=== PATIENT | male | born 1990 | race African-American/Black ===

== ENCOUNTER 2018-04-11 03:23 | Emergency (ER) | payer SELFPAY ==
--- NOTE | 2018-04-11 04:51 | ER Document Report ---
ED General - General TRAVEL OUTSIDE OF THE [place] IN LAST 30 DAYS: No <CHEL SPEARS - Last Filed: 04/11/18 06:48> <LYNETTE QUIROGA - Last Filed: 04/11/18 16:03> - General Chief Complaint: ETOH Abuse Stated Complaint: BEHAVIORAL ISSUES Time Seen by Provider: 04/11/18 03:48 Notes: 22-year-old male with a past medical history of psychosis after alcohol ingestion presents to the emergency department for drinking alcohol tonight and requiring a psychiatric evaluation. Unable to obtain a history from him because he is speaking word salad and is perseverating speech. (CHEL SPEARS) - Related Data Allergies/Adverse Reactions: No Known Allergies Allergy (Verified 02/09/16 12:35) Past Medical History - General Cannot obtain history due to: Altered mental status - Social History Smoking Status: Never Smoker Chew tobacco use (# tins/day): No Frequency of alcohol use: Heavy Family History: Reviewed & Not Pertinent Patient has suicidal ideation: No Patient has homicidal ideation: No Renal/ Medical History: Denies: Hx Peritoneal Dialysis Psychiatric Medical History: Reports: Hx Attention Deficit Hyperactivity Dis order - Immunizations Hx Diphtheria, Pertussis, Tetanus Vaccination: Yes <CHEL SPEARS - Last Filed: 04/11/18 06:48> Review of Systems - Review of Systems -: Yes ROS unobtainable due to patient's medical condition <CHEL SPEARS - Last Filed: 04/11/18 06:48> Physical Exam <CHEL SPEARS - Last Filed: 04/11/18 06:48> - Vital signs Vitals: Temp Pulse Resp BP Pulse Ox 98.6 F 119 H 20 119/76 98 04/11/18 03:35 04/11/18 03:35 04/11/18 03:35 04/11/18 03:35 04/11/18 03:35 - Notes Notes: Reviewed vital signs and nursing note as charted by RN. CONSTITUTIONAL: Well-appearing, well-nourished, acting inappropriately for age HEAD: Normocephalic, atraumatic, no swelling EYES: PERRL, Conjunctivae clear, no drainage, EOMI, no scleral icterus ENT: External ears without lesions, External auditory canal is patent, airway patent, mucous membranes pink and moist NECK: Supple, no masses CARD: Regular rate and rhythm, no murmurs, no rubs, no gallops, capillary refill < 2 seconds, symmetric pulses RESP: The lungs are clear to auscultation bilaterally, no wheezing, no rales, no rhonchi. Respiratory rate and effort are normal, normal chest excursion. No respiratory distress, no retractions, no stridor, no nasal flaring, no accessory muscle use. ABD/GI: Normal bowel sounds, non-distended, soft, non-tender, no rebound, no guarding, no palpable organomegaly EXT: Normal ROM in all joints, non-tender to palpation, no effusions, no edema SKIN: Normal color for age and race, warm, dry, good turgor, no acute lesions noted NEURO: No facial asymmetry, moves all extremities equally, motor and sensory function intact PSYCH: Patient is speaking word salad. Patient states that there are people in his house were trying to murder him. Denies visual hallucinations. Denies auditory hallucinations. (CHEL SPEARS) Course - Laboratory Result Diagrams: 04/11/18 03:55 04/11/18 03:55 <CHEL SPEARS - Last Filed: 04/11/18 06:48> - Laboratory Result Diagrams: 04/11/18 03:55 04/11/18 03:55 <LYNETTE QUIROGA - Last Filed: 04/11/18 16:03> - Re-evaluation Re-evalutation: 04/11/18 04:52 22-year-old male who is been seen here before for acute psychosis after EtOH ingestion. He presents to the emergency department for the same symptoms after consuming alcohol. Is laying in the bed comfortably, calm talking to himself and speaking word salad. IVC protocol initiated. Patient is currently sinus tachycardic. Will recheck vital signs. 04/11/18 06:20 Reevaluated patient. He is lying comfortably in the bed sleeping. When I woke him he started mumbling again and was incoherent. Patient follows instructions. No signs of trauma or head injury. Patient remained calm and pulse check showed 102 bpm. IVC protocol lab work pending. Clinical picture most consistent with acute psychosis secondary to psychiatric illness and alcohol intoxication. Expectation is for patient to be medically cleared and evaluated by mental he alth team. 04/11/18 06:48 04/11/18 07:20 EKG completed. No acute changes. Patient is medically cleared to be evaluated by mental health team. (CHEL SPEARS) - Vital Signs Vital signs: Temp Pulse Resp BP Pulse Ox 98.0 F 76 18 120/70 100 04/11/18 08:58 04/11/18 08:58 04/11/18 08:58 04/11/18 08:58 04/11/18 08:58 04/11/18 06:20 Pulse: 102 (CHEL SPEARS) - Laboratory Laboratory results interpreted by me: 04/11/18 04/11/18 03:55 03:55 Hgb 13.4 L RDW 15.1 H Glucose 111 H ALT 18 L Salicylates < 1.0 L Acetaminophen < 10 L Discharge <CHEL SPEARS - Last Filed: 04/11/18 06:48> <LYNETTE QUIROGA - Last Filed: 04/11/18 16:03> - Discharge Clinical Impression: Acute psychosis, ETOH abuse Condition: Stable Additional Instructions: ED General - General TRAVEL OUTSIDE OF THE [place] IN LAST 30 DAYS: No <CHEL SPEARS - Last Filed: 04/11/18 06:48> <LYNETTE QUIROGA - Last Filed: 04/11/18 15:52> - General Chief Complaint: ETOH Abuse Stated Complaint: BEHAVIORAL ISSUES Time Seen by Provider: 04/11/18 03:48 Notes: 22-year-old male with a past medical history of psychosis after alcohol ingestion presents to the emergency department for drinking alcohol tonight and requiring a psychiatric evaluation. Unable to obtain a history from him because he is speaking word salad and is perseverating speech. (CHEL SPEARS) - Related Data Allergies/Adverse Reactions: No Known Allergies Allergy (Verified 02/09/16 12:35) Past Medical History - General Cannot obtain history due to: Altered mental status - Social History Smoking Status: Never Smoker Chew tobacco use (# tins/day): No Frequency of alcohol use: Heavy Family History: Reviewed & Not Pertinent Patient has suicidal ideation: No Patient has homicidal ideation: No Renal/ Medical History: Denies: Hx Peritoneal Dialysis Psychiatric Medical History: Reports: Hx Attention Deficit Hyperactivity Disorder - Immunizations Hx Diphtheria, Pertussis, Tetanus Vaccination: Yes <REGANCHEL - Last Filed: 04/11/18 06:48> Review of Systems - Review of Systems -: Yes ROS unobtainable due to patient's medical condition <REGANCHEL - Last Filed: 04/11/18 06:48> Physical Exam <REGANCHEL - Last Filed: 04/11/18 06:48> - Vital signs Vitals: Temp Pulse Resp BP Pulse Ox 98.6 F 119 H 20 119/76 98 04/11/18 03:35 04/11/18 03:35 04/11/18 03:35 04/11/18 03:35 04/11/18 03:35 - Notes Notes: Reviewed vital signs and nursing note as charted by RN. CONSTITUTIONAL: Well-appearing, well-nourished, acting inappropriately for age HEAD: Normocephalic, atraumatic, no swelling EYES: PERRL, Conjunctivae clear, no drainage, EOMI, no scleral icterus ENT: External ears without lesions, External auditory canal is patent, airway p atent, mucous membranes pink and moist NECK: Supple, no masses CARD: Regular rate and rhythm, no murmurs, no rubs, no gallops, capillary refill < 2 seconds, symmetric pulses RESP: The lungs are clear to auscultation bilaterally, no wheezing, no rales, no rhonchi. Respiratory rate and effort are normal, normal chest excursion. No respiratory distress, no retractions, no stridor, no nasal flaring, no accessory muscle use. ABD/GI: Normal bowel sounds, non-distended, soft, non-tender, no rebound, no guarding, no palpable organomegaly EXT: Normal ROM in all joints, non-tender to palpation, no effusions, no edema SKIN: Normal color for age and race, warm, dry, good turgor, no acute lesions n oted NEURO: No facial asymmetry, moves all extremities equally, motor and sensory function intact PSYCH: Patient is speaking word salad. Patient states that there are people in his house were trying to murder him. Denies visual hallucinations. Denies auditory hallucinations. (CHEL SPEARS) Course - Laboratory Result Diagrams: 04/11/18 03:55 04/11/18 03:55 <CHEL SPEARS - Last Filed: 04/11/18 06:48> - Laboratory Result Diagrams: 04/11/18 03:55 04/11/18 03:55 <LYNETTE QUIROGA - Last Filed: 04/11/18 15:52> - Re-evaluation Re-evalutation: 04/11/18 04:52 22-year-old male who is been seen here before for acute psychosis after EtOH ingestion. He presents to the emergency department for the same symptoms after consuming alcohol. Is laying in the bed comfortably, calm talking to himself and speaking word salad. IVC protocol initiated. Patient is currently sinus tachycardic. Will recheck vital signs. 04/11/18 06:20 Reevaluated patient. He is lying comfortably in the bed sleeping. When I woke him he started mumbling again and was incoherent. Patient follows instructions. No signs of trauma or head injury. Patient remained calm and pulse check showed 102 bpm. IVC protocol lab work pending. Clinical picture most consistent with acute psychosis secondary to psychiatric illness and alcohol intoxication. Expectation is for patient to be medically cleared and evaluated by mental health team. 04/11/18 06:48 04/11/18 07:20 EKG completed. No acute changes. Patient is medically cleared to be evaluated by mental health team. (CHEL SPEARS) - Vital Signs Vital signs: Temp Pulse Resp BP Pulse Ox 98.0 F 76 18 120/70 100 04/11/18 08:58 04/11/18 08:58 04/11/18 08:58 04/11/18 08:58 04/11/18 08:58 04/11/18 06:20 Pulse: 102 (CHEL SPEARS) - Laboratory Laboratory results interpreted by me: 04/11/18 04/11/18 03:55 03:55 Hgb 13.4 L RDW 15.1 H Glucose 111 H ALT 18 L Salicylates < 1.0 L Acetaminophen < 10 L Discharge <CHEL SPEARS - Last Filed: 04/11/18 06:48> <LYNETTE QUIROGA - Last Filed: 04/11/18 15:52> - Discharge Clinical Impression: Acute psychosis Disposition: HOME, SELF-CARE You have been evaluated by both behavioral health and medical at [facility] ED after presenting with alcohol abuse with psychosis and are now deemed appropriate for discharge. While in the ED you received and initial medical screening, lab work, EKG, direct staff observation, clinical evaluation, physician assessments and outpatient resources for follow up. Medical record review revealed you have a history of presenting to the ED with psychosis after abusing alcohol. You are encouraged to develop coping skills to substitute follow up with your outpatient resources provided to you.Acute Alcohol Intoxication Your evaluation revealed very high levels of alcohol. You can from drinking a large amount of alcohol rapidly! Further, there's the risk of falls, traffic accidents, and fights. A high portion (about 50 percent) of the serious injuries seen in hospital emergency rooms are caused by alcohol. Alcohol overdosage is usually due to an underlying emotional or psychiatric problem. You may benefit from counselling. If "binge" drinking is an ongoing problem for you, or if you drink ANY AMOUNT of alcohol EVERY day, you most likely have a tendency to alcoholism. You should avoid alcohol totally. We can refer you for treatment. Persons with alcohol problems are often also prone to other addictions -- you should discuss any use of medications or drugs with the doctor. You should be watched at home for the next several hours by someone who has not been drinking. Get extra fluids for the next 24 hours. Call the doctor if there is repeated vomiting, increasing headache, decreasing level of alertness, or any other worsening. Schizophrenia Schizophrenia is a chemical disorder that affects how the brain functions. The exact cause is unknown, but it tends to run in families. It is NOT caused by emotional trauma. Schizophrenia causes disordered thinking, including unusual beliefs and inability to "process" happenings around the patient. Patients with schizophrenia benefit greatly from medicine. These medicines are called antipsychotics. Never stop the medicine without the doctor's approval. Counselling may help the patient deal with his disease. Schizophrenics require a very ordered environment. Stresses and sudden changes may bring out symptoms. Drugs and alcohol abuse may become problems. Contact the counsellor or crisis line if there are thoughts of suicide or of harming others, or if you become aware of unusual thoughts or beliefs
[2018-04-11 04:56] LABS: ABSOLUTE MONOCYTES (AUTO) 0.6 10^3/uL (0.1-1.4); ABSOLUTE NEUT (AUTO) 3.4 10^3/uL (1.7-8.2); BASOPHILS % (AUTO) 0.4 % (0-2); EOSINOPHILS % (AUTO) 0.2 % (0-6); HEMATOCRIT 39.9 % (37.9-51.0); HEMOGLOBIN 13.4 g/dL (13.5-17.0); LYMPHOCYTES % (AUTO) 32.9 % (13-45); MEAN CORPUSCULAR HEMOGLOBIN 28.7 pg (27.0-33.4); MEAN CORPUSCULAR HGB CONC 33.6 g/dL (32.0-36.0); MEAN CORPUSCULAR VOLUME 86 fl (80-97); MONOCYTES % (AUTO) 9.5 % (3-13); PLATELET COUNT 280 10^3/uL (150-450); RED BLOOD COUNT 4.66 10^6/uL (4.35-5.55); RED CELL DISTRIBUTION WIDTH 15.1 % (11.5-14.0); TOTAL CELLS COUNTED % (AUTO) 100 %
[2018-04-11 05:04] LABS: ACETAMINOPHEN < 10 ug/mL (10-30); ALANINE AMINOTRANSFERASE 18 U/L (21-72); ALBUMIN 4.6 g/dL (3.5-5.0); ALCOHOL 224 mg/dL (NONE DETECTED); ALKALINE PHOSPHATASE 59 U/L (38-126); ANION GAP 15 (5-19); ASPARTATE AMINO TRANSFERASE 32 U/L (17-59); BILIRUBIN,DIRECT 0.3 mg/dL (0.0-0.4); BLOOD UREA NITROGEN 8 mg/dL (7-20); CALCIUM 9.6 mg/dL (8.4-10.2); CARBON DIOXIDE 26 mmol/L (22-30); CHLORIDE 103 mmol/L (98-107); GLUCOSE 111 mg/dL (75-110); SALICYLATE < 1.0 mg/dL (2.0-20.0); SODIUM 143.7 mmol/L (137-145); TOTAL PROTEIN 7.8 g/dL (6.3-8.2)
[2018-04-11 06:22] LABS: APPEARANCE,URINE CLEAR; BILIRUBIN,URINE NEGATIVE (NEGATIVE); COLOR,URINE STRAW; GLUCOSE, URINE NEGATIVE (NEGATIVE); KETONES,URINE NEGATIVE (NEGATIVE); LEUKOCYTE ESTERASE,URINE NEGATIVE (NEGATIVE); NITRITE,URINE NEGATIVE (NEGATIVE); PROTEIN,URINE NEGATIVE (NEGATIVE); URINE SPECIFIC GRAVITY 1.002; UROBILINOGEN,URINE NEGATIVE mg/dL (<2.0)
[2018-04-11 06:39] LABS: URINE AMPHETAMINES SCREEN NEGATIVE; URINE BARBITURATES SCREEN NEGATIVE; URINE BENZODIAZEPINES SCREEN NEGATIVE; URINE COCAINE SCREEN NEGATIVE; URINE MARIJUANA (THC) SCREEN NEGATIVE; URINE METHADONE SCREEN NEGATIVE; URINE PHENCYCLIDINE SCREEN NEGATIVE
--- NOTE | 2018-04-11 09:08 | RADIOLOGY REPORT (SQ) ---
EXAM DESCRIPTION: CT HEAD WITHOUT COMPLETED DATE/TIME: 04/11/2018 8:57 am REASON FOR STUDY: BEHAVIORAL CHANGES, AMS COMPARISON: None. TECHNIQUE: Axial images acquired through the brain without intravenous contrast. Images reviewed wi th bone, brain and subdural windows. Additional sagittal and coronal reconstructions were generated. Images stored on PACS. All CT scanners at this facility use dose modulation, iterative reconstruction, and/or weight based d osing when appropriate to reduce radiation dose to as low as reasonably achievable (ALARA). [facility]: Dose Right [facility]: CareDose [facility]: Dose Right [facility]: Teradose 4D [facility]: Immunologix RADIATION DOSE: 1249 mGy cm LIMITATIONS: None. FINDINGS: VENTRICLES: Normal size and contour. CEREBRUM: No masses. No hemorrhage. No midline shift. No evidence for acute infarction. Normal gra y/white matter differentiation. No areas of low density in the white matter. CEREBELLUM: No masses. No hemorrhage. No alteration of density. No evidence for acute infarction. EXTRAAXIAL SPACES: No fluid collections. No masses. ORBITS AND GLOBE: No intra- or extraconal masses. Normal contour of globe without masses. CALVARIUM: No fracture. PARANASAL SINUSES: No fluid or mucosal thickening. SOFT TISSUES: No mass or hematoma. OTHER: No other significant finding. IMPRESSION: NO ACUTE INTRACRANIAL IMAGING FINDINGS. EVIDENCE OF ACUTE STROKE: NO. COMMENT: Quality ID # [id number]: Final reports with documentation of one or more dose reduction techniques (e.g., Automated exposure control, adjustment of the mA and/or kV according to patient size, use of iterative reconstruction technique) TECHNICAL DOCUMENTATION: JOB ID: [id number] [employer]- All Rights Reserved Reading location - IP/workstation name: [email or web address]
--- NOTE | 2018-04-11 10:41 | ER Document Report ---
Doctor's Note Notes: 04/11/18 10:40 Patient seen and evaluated by myself. Patient is a 27-year-old male presents the emergency department with intoxication and psychosis. Patient is well-known to the staff. Patient's alcohol was at 224. No issues overnight per nursing. In the room the patient states that he feels much better. He has no complaints. Repeat alcohol ordered. Behavioral health consulted. Awaiting their recommendations. 04/11/18 16:15 Behavioral health evaluated the patient. They feel that the patient can be discharged home. He denies any suicidal or homicidal ideations.
--- NOTE | 2018-04-11 14:18 | EKG REPORT ---
SEVERITY:- NORMAL ECG - SINUS RHYTHM : Confirmed by: Ivana Gomez MD 11-Apr-2018 14:18:00
[2018-04-11 16:26] VITALS: BP 132/74
--- NOTE | 2018-04-17 05:48 | PSYCHOLOGICAL NOTE ---
Psych Note - Psych Note Date seen by psych provider: 04/11/18 Time seen by psych provider: 09:00 Psych Note: Reason for Consult: AV/H, ETOH abuse Contact Permissions: Adali Yi [phone] Patient is a 27 yo male presenting to the ED with HI and in apparent psychosis aeb unable to speak coherently (word salad) due to disorganized thought process. Chart review shows a hx of this patient experiencing psychosis with ETOH abuse. ETOH upon arrival was 224. Patient is initially awake but not speaking. After a few minutes though, he decides to speak and reports that he wants to go home. Patient admits drinking with friends last night, reports little memory of events leading up to his ED visit, denies being in treatment with a MH provider, denies MH diagnosis or current medication. Patient denies having any legal problems. Patient lives with his mother Adali Yi who is agreeable to his discharge to home/self-care and will provide transportation. Patient was alert and oriented x 4. Mood was euthymic with congruent affect. Patient denied endorsed SI, HI, and AV/H, does not appear to be responding to internal stimuli and no delusions were noted. Thought processes were linear, organized, and rational. Conversational speech was WNL for rate, tone, and prosody. Eye contact was. . Intellectual abilities were estimated within the average range. Immediate good and remote memory was impaired. Attention and concentration was WNL, while insight, judgment, and impulse control was good. 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 Plan is to discharge to home for self-care and follow up with a MH provider for substance abuse treatment. Patient was cautioned against ETOH abuse and provided psychoeducation about services available and local resource list to include [facility]. He verbalized understanding as did his mother who was also advised about importance of medication compliance and administration. Patient to discharge with his mother. Consulted Dr. Rosenthal in the care and treatment of this patient and ED physician who is in agreement with recommendation and disposition.
== END 2018-04-11 16:26 | disposition home or self-care (01) ==
LOC: ER 03:23
DX: F10.129 Alcohol abuse with intoxication, unspecified (principal); F10.159 Alcohol abuse with alcohol-induced psychotic disorder, unspecified; Y90.7 Blood alcohol level of 200-239 mg/100 ml; R00.0 Tachycardia, unspecified
CPT/HCPCS: 36415; 70450; 80053; 80307; 81001; 85025; 93005; 93010; 99285

== ENCOUNTER 2019-02-24 04:37 | Emergency (ER) | payer SELFPAY ==
[2019-02-24 04:46] VITALS: BP 125/74
--- NOTE | 2019-02-24 05:21 | ER Document Report ---
HPI - HPI Patient complains to provider of: spider bite Time Seen by Provider: 02/24/19 04:58 Pain Level: Denies Context: Patient is a 28-year male presents to the emergency department for concerns with a spider bite to the right foot. Patient voices he sustained a spider bite from a "poisonous spider" a few days ago. Patient is concerned that "poison is running through my veins." Patient denies any medical problems, denies taking any daily medications. Patient has been seen at this facility in the past for psychiatric evaluation. Patient is denying any suicidal or homicidal ideations. He is conscious alert and oriented x4. - REPRODUCTIVE Reproductive: DENIES: : Past Medical History - General Information source: Patient - Social History Smoking Status: Current Every Day Smoker Frequency of alcohol use: None Drug Abuse: None Family History: Reviewed & Not Pertinent Patient has suicidal ideation: No Patient has homicidal ideation: No Renal/ Medical History: Denies: Hx Peritoneal Dialysis Psychiatric Medical History: Reports: Hx Attention Deficit Hyperactivity Disorder - Immunizations Hx Diphtheria, Pertussis, Tetanus Vaccination: Yes Vertical Provider Document - CONSTITUTIONAL Agree With Documented VS: Yes Notes: GENERAL: Alert, interacts well. No acute distress. HEAD: Normocephalic, atraumatic. EYES: Pupils equal, round, and reactive to light. Extraocular movements intact. ENT: Oral mucosa moist, tongue midline. NECK: Full range of motion. Supple. Trachea midline. LUNGS: Clear to auscultation bilaterally, no wheezes, rales, or rhonchi. No respiratory distress. HEART: Regular rate and rhythm. No murmur ABDOMEN: Soft, non-tender. Non-distended. Bowel sounds present in all 4 quadrants. EXTREMITIES: Moves all 4 extremities spontaneously. No edema, normal radial and dorsalis pedis pulses bilaterally. No cyanosis. BACK: no cervical, thoracic, lumbar midline tenderness. No saddle anesthesia, normal distal neurovascular exam. NEUROLOGICAL: Alert and oriented x3. Normal speech. cranial nerves II through XII grossly intact PSYCH: Normal affect, normal mood. SKIN: Warm, dry, normal turgor. No rashes or lesions noted. - INFECTION CONTROL TRAVEL OUTSIDE OF THE [place] IN LAST 30 DAYS: No Course - Re-evaluation Re-evalutation: 02/24/19 05:19 Patient shows me the dorsal aspect of his right foot. States this is where the spider bit him. I see no ecchymosis, erythema, warmth, fluctuance, induration. Patient voices "you can't really see it, but it is there." I discussed with them there is no need for antibiotics at this time. Patient voices understanding and states he is thankful that there is "no poison in me." Patient continues conscious alert and oriented x4. Denies suicidal or homicidal ideations. Stable for discharge. - Vital Signs Vital signs: Temp Pulse Resp BP Pulse Ox 98.0 F 112 H 20 125/74 99 02/24/19 04:45 02/24/19 04:45 02/24/19 04:45 02/24/19 04:45 02/24/19 04:45 Discharge - Discharge Clinical Impression: Feared complaint without diagnosis Spider bite Qualifiers: Encounter type: initial encounter Injury intent: accidental or unintentional Qualified Code(s): T63.301A - Toxic effect of unspecified spider venom, accidental (unintentional), initial encounter Condition: Stable Disposition: HOME, SELF-CARE Additional Instructions: As we discussed you have been seen and treated in the emergency department for your fever of being bypass better. I do not see any signs of infection or "poison". You do not need any antibiotics at this time. Please follow-up with your primary care provider in the next 12 to 24 hours. Please return to the emergency department for any concerns.
== END 2019-02-24 05:25 | disposition home or self-care (01) ==
LOC: ER 04:37
DX: T63.301A Toxic effect of unspecified spider venom, accidental (unintentional), initial encounter (principal); F17.200 Nicotine dependence, unspecified, uncomplicated
CPT/HCPCS: 99281